=== PATIENT | female | born 1995 | race Hispanic/Latino ===

== ENCOUNTER 2018-01-17 05:51 | Inpatient (IN) | payer BC ==
[2018-01-17] MEDS ORDERED: BUTORPHANOL 1 MG/ML INJ IV PRN (06:49)
[2018-01-17] MEDS ORDERED: Ringers Lactate 1,000 ML IV PRN (06:49)
[2018-01-17] MEDS ORDERED: PROMETHAZINE 25 MG/ML VIAL IM PRN (06:49)
[2018-01-17] MEDS ORDERED: Ringers Lactate 1,000 ML IV ONE (06:51)
[2018-01-17] MEDS ORDERED: OXYTOCIN/LR 20 UNIT/1,000 ML BAG IV ONE (06:52)
[2018-01-17] MEDS ORDERED: OXYTOCIN/LR 20 UNIT/1,000 ML BAG IV SCH (07:00)
[2018-01-17] MEDS ORDERED: Ringers Lactate 1,000 ML IV SCH (07:00)
[2018-01-17 07:06] LABS: RPR Titer ND
[2018-01-17 07:11] LABS: Urine Appearance CLOUDY; Urine Bilirubin NEGATIVE (NEG); Urine Blood NEGATIVE (NEG); Urine Color YELLOW; Urine Glucose NEGATIVE (NEG); Urine Microscopic Reflex ORDER UMIC; Urine Protein NEGATIVE (NEG); Urine Specific Gravity 1.025 (1.005-1.030); Urine Urobilinogen 0.2 mg/dL (0.2-1.0); Urine pH 6.5 (5.0-7.0)
[2018-01-17 07:20] LABS: Urine Bacteria 20-50 /HPF (<20); Urine Culture Reflex Order REFLEXED; Urine RBC <5 /HPF (NONE SEEN); Urine Yeast FEW (NONE SEEN); Urine Yeast with Hyphae PRESENT
[2018-01-17 07:21] VITALS: BMI 30.4
[2018-01-17 07:26] LABS: Absolute Lymphocytes (CBC) 1.6 K/uL (0.7-4.9); Absolute Monocytes 0.6 K/uL (0.1-1.3); Absolute Neutrophil 6.4 K/uL (1.8-8.0); Basophils % 0.5 % (0-1.3); Hematocrit 34.5 % (36.0-45.0); Lymphocytes % 18.5 % (15.3-44.8); MPV 9.5 fL (7.6-11.3); Monocytes % 6.6 % (3.3-12.3); RBC Red Blood Cell Count 4.15 M/uL (3.86-4.86)
[2018-01-17 07:55] LABS: Blood Morphology Comment NOT SEEN (NOT SEEN); Platelet Estimate ADEQ; Urine White Blood Cell Casts OK
[2018-01-17] MEDS ORDERED: INFLUENZA VACCINE (for 5y+) 0.5 ML DOSE IMVAC ONE (08:00)
[2018-01-17] MEDS ORDERED: CEFTRIAXONE 2,000 MG in NA CHLORIDE 0.9% 100 ML IV ONE (12:26)
[2018-01-17] MEDS ORDERED: CEFTRIAXONE/SWI 2gm 2 GM/20 ML SYR IV ONE (12:40)
[2018-01-17] MEDS ORDERED: FENTANYL CITR 100 MCG/2 ML IV ONE (13:06)
[2018-01-17] MEDS ORDERED: ROPIVACAINE HCL 100 ML IV PRN (13:06)
[2018-01-17] MEDS ORDERED: ROPIVACAINE HCL 0.2% 20ML AMP IV ONE (13:07)
[2018-01-17] MEDS ORDERED: EPHEDRINE SULF 50 MG/ML SYR ONE (14:43)
--- NOTE | 2018-01-17 17:04 | HP ---
Date of Admission: 01/17/2018 History Of Present Illness: Thu is a 22-year-old, 1, para 0, who presents at 39 weeks gestation for elective induction of labor. The patient has been seen by me in my office beginning at 12 weeks gestation. She has been compliant with all visits. She is in a homosexual relationship. Her partner is very supportive of the . care has been uncomplicated except for some mild anemia. She received her Tdap vaccine on 06/2018. She is GBS negative. She is A positive. Antibody negative. Rubella immune. RPR is negative. Hepatitis B is negative. HIV negative. Varicella immune. She had a noninvasive testing done, low risk male . Ultrasounds were in normal range. Last ultrasound was done on December 14, 2017 , at which time, was noted to be in cephalic presentation. Anterior placenta. TACO is 15. EFW was within normal range. Past Medical History: Negative. Past Surgical History: She had a polyp removed. Ob History: Primiparous. Gynecologic History: She has regular menstrual cycles every month. Family History: Significant for thyroid problems. Social History: No tobacco, alcohol, or drug use. Physical Examination: Vital Signs: On admission, blood pressure is 118/58, pulse of 60, respirations 18, temperature 97.3. General: The patient resting in bed, with minimal to mild distress. Skin: multiple tattoos Head and Neck: Normocephalic, atraumatic. Neck is supple. Heart: Regular rate and rhythm. Respiratory: Symmetric nonlabored breathing. Abdomen: Gravid. Extremities: Bilateral lower extremities, no clubbing, cyanosis, or edema. Vaginal: Normal external female genitalia. Vagina is pink, moist, normal rugae. Cervix is found to be 2 cm dilated, 60% effaced, -2 station. Mid position. Rupture of membranes performed, clear fluid noted. heart rate monitoring, baseline heart rate is 140 beats per minute. Moderate variability, category 2 tracing. [place]: irregular contractions. Pitocin is currently at 8 milliunits per minute. Assessment/plan: Thu is a 22-year-old, 1, para 0, at 39 weeks gestation, admitted for induction of labor. Rupture of membranes has been performed. Pitocin is being given for labor augmentation. Patient able to receive epidural at her request. Continuous maternal monitoring will be performed. Anticipate vaginal . JACKELINE Voice ID: [id number] [email or web address]
[2018-01-17] MEDS ORDERED: LIDOCAINE 2% INJ, 20 mL 0 ML ONE (19:46)
[2018-01-17] MEDS ORDERED: METHYLERGONOVINE 0.2MG/ML AMP IM ONE (19:46)
[2018-01-17] MEDS ORDERED: Oxycodone HCl/Acetaminophen 1 TAB TAB PO PRN ×2 (20:09)
[2018-01-17] MEDS ORDERED: METHYLERGONOVINE 0.2 MG TAB PO PRN (20:09)
[2018-01-17] MEDS ORDERED: ACETAMINOPHEN 500 MG TAB PO PRN (20:09)
[2018-01-17] MEDS ORDERED: DOCUSATE NA/SENNA CONC 1 TAB PO PRN (20:09)
[2018-01-17] MEDS ORDERED: ONDANSETRON 4 MG (ODT) TAB PO PRN (20:09)
[2018-01-17] MEDS ORDERED: BISACODYL 10 MG RECTAL SUPP RECT PRN (20:09)
--- NOTE | 2018-01-17 20:13 | P.OP ---
Date of Service: 01/17/18 Findings and Operative Technique Patient delivered a viable male in cephalic presentation on 01/17/2018 at. Infant was delivered via vacuum assisted vaginal delivery over a midline episiotomy due to bradycardia. Upon delivery nuchal cord was noted x1 and was manually reduced. Nose and mouth was then suctioned with a suction bulb. Cord was clamped and cut and infant was placed on mother's abdomen for skin to skin bonding. Attention was then turned to the placenta which was delivered with gentle traction. Placenta was examined and noted to be intact. Attention was then turned to the midline episiotomy which was noted to be a fourth degree laceration. This was repaired in multiple layers with a 3.0 vicryl. Careful attention was given to approximate the torn mucosa and sphicter edges. Once this was done a 2.0 vicryl was used to repair the episiotomy in a usual fashion. EBL: 300cc APGARS: 9/9 Weight: 6 lb 13 oz Complications: 4th degree laceration - 2g rocephin was given, colace ordered, discussed with patient and her spouse
[2018-01-17] MEDS: IBUPROFEN 200 MG TAB PO PRN (22:50)
[2018-01-18 00:23] LABS: RPR (Rapid Plasma Reagin) NON-REACT (NON-REACT)
[2018-01-18 06:21] LABS: Absolute Lymphocytes (CBC) 1.3 K/uL (0.7-4.9); Absolute Monocytes 1.3 K/uL (0.1-1.3); Basophils % 0.3 % (0-1.3); Eosinophils % 0.2 % (0-4.4); Hematocrit 29.2 % (36.0-45.0); Lymphocytes % 8.8 % (15.3-44.8); MCH 27.7 pg (27.0-35.0); MCV 82.7 fL (80-100); MPV 9.5 fL (7.6-11.3); Monocytes % 8.8 % (3.3-12.3); RBC Red Blood Cell Count 3.53 M/uL (3.86-4.86)
[2018-01-18] MEDS ORDERED: DOCUSATE NA 100 MG CAP PO SCH (09:00)
[2018-01-18] MEDS: IBUPROFEN 200 MG TAB PO PRN ×2 (09:38→23:15)
[2018-01-19 08:59] VITALS: BP 135/68; TEMP 97.4
[2018-01-20 06:00] LABS: HBsAG Nonreactive (Nonreactive)
--- NOTE | 2018-01-21 09:01 | PN ---
Afebrile, ambulating, voiding. No complaints. Full dismissal instructions. She has already had a T dap immunization. She will be dismissed either later this evening or tomorrow morning. She knows to call Dr. Santana's office today and make an appointment to see her when instructed. She knows that if she gets home and has any problems during the weekend, we have given her Labor and Delivery number s o she can call that. No questions asked. No problems reported this morning. SPENSER/KATLYN Voice ID: [id number] Report ID: [id number]
--- NOTE | 2018-01-21 09:04 | PN ---
Doing quite well this morning. No problems overnight. We went over the dismissal instructions again . She is reminded to take Colace twice a day for 2 weeks, to call to Labor and Delivery this week, a nd if she has any problems or questions, and to call Dr. Santana's office on Sunday for further instruc tions. SPENSER/KATLYN Voice ID: [id number] Report ID: [id number]
--- NOTE | 2018-01-31 02:32 | P.DS ---
Admission Date: 01/17/18 Discharge Date: 01/18/18 Disposition: ROUTINE DISCHARGE Discharge Condition: GOOD Brief History of Present Illness: see h&p Hospital Course: Patient is doing well after delivery of infant. She has had a 4th degree laceration. Her pain is in control. She is bonding well with the infant. Vital Signs/Physical Exam: Temp Pulse Resp BP Pulse Ox 97.4 F 107 H 18 135/68 01/19/18 08:00 01/19/18 08:00 01/19/18 08:00 01/19/18 08:00 General: Alert, In no apparent distress HEENT: Atraumatic Neck: Supple Respiratory: Normal air movement Cardiovascular: No edema, Normal pulses Gastrointestinal: Soft and benign Musculoskeletal: No clubbing Integumentary: No rashes Neurological: Normal gait, Normal speech External genitalia: No edema Laboratory Data at Discharge: WBC 14.7 K/uL (4.3-10.9) H D 01/18/18 05:57 Hgb 9.8 g/dL (12.0-15.0) L 01/18/18 05:57 Hct 29.2 % (36.0-45.0) L D 01/18/18 05:57 Plt Count 140 K/uL (152-406) L 01/18/18 05:57 Home Medications: Pnv59/Iron,Carb&Fum/FA/Dss/Dha [Citranatal [place] Capsule] 1 cap PO DAILY 01/17 Docusate [Colace Cap] 100 mg PO BID 14 Days #28 cap 01/18/18 Tramadol HCl [Ultram] 50 mg PO Q6HR #20 tablet 01/18/18 New Medications: Docusate [Colace Cap] 100 mg PO BID 14 Days #28 cap Tramadol HCl [Ultram] 50 mg PO Q6HR #20 tablet Diet: Regular Activity: No lifting more than 10 lbs Followup: César Santana DO [ACTIVE - CAN ADMIT] -
== END 2018-01-19 08:50 | disposition home or self-care (01) | DRG 775 ==
LOC: 2ND-WC 05:51
PROVIDERS: ADMIT Student in an Organized Health Care Education/Training Program; ATTEND Student in an Organized Health Care Education/Training Program
PROC: 10907ZC Drainage of Amniotic Fluid, Therapeutic from Products of Conception, Via Natural or Artificial Opening (ICD-10-PCS; principal; 2018-01-17)
PROC: 10D07Z6 Extraction of Products of Conception, Vacuum, Via Natural or Artificial Opening (ICD-10-PCS; 2018-01-17)
PROC: 0DQP0ZZ Repair Rectum, Open Approach (ICD-10-PCS; 2018-01-17)
PROC: 0W8NXZZ Division of Female Perineum, External Approach (ICD-10-PCS; 2018-01-17)
DX: O76 Abnormality in fetal heart rate and rhythm complicating labor and delivery (principal); O70.3 Fourth degree perineal laceration during delivery; O69.81X0 Labor and delivery complicated by cord around neck, without compression, not applicable or unspecified; Z3A.39 39 weeks gestation of pregnancy; Z37.0 Single live birth
CPT/HCPCS: 36415; 81003; 81015; 85025; 86592; 86901; 87086; 87088; 87340; J0696; J2210; J2590; J2795; J3010